=== PATIENT | female | born 1960 | race Caucasian/White ===

== ENCOUNTER 2018-03-15 13:55 | Observation (INO) | END 2018-03-16 19:04 | disposition home or self-care (01) ==

== ENCOUNTER 2018-07-25 07:42 | Day surgery (SDC) | payer BC ==
[2018-07-25] VITALS (17 sets, daily range): BP systolic 109–129; BP diastolic 49–64; PULSE 60–82; RESP 16–23; Ht 154.9 cm; Wt 87.7 kg
[~2018-07-25] VITALS: Ht 154.9 cm; Wt 87.7 kg
[~2018-07-25 07:42] MED LIST: ADV10050 INHALATION; ALEN70TA5 PO; AMLO-147 PO; ASPI-817 PO; ATOR20TA38 PO; CLOP75TA28 PO; DIAZEPAM 5 MG TAB PO ONE; DIGO125T93 PO; DIPHENHYDRAMINE 50 MG CAP PO ONE; ERGO500014 PO; FAMO20TA18 PO; FAMOTIDINE 20 MG TAB PO ONE; FENO160T10 PO; LIRA0.6P SQ; LOSA25TA12 PO; MAGN400T28 PO; METO-319 PO; MONT10TA24 PO; PIOG30TA71 PO; POTA8CAP PO; SOD CHLORIDE 0.45% 1,000 ML IV SCH; SPIR25TA PO; SULF1TAB31 PO
[2018-07-25] MEDS ORDERED: LIRA0.6P SQ (09:33)
[2018-07-25] MEDS ORDERED: BUME2TAB PO (09:33)
[2018-07-25] MEDS ORDERED: TRAM50TA PO (09:33)
[2018-07-25] MEDS ORDERED: MIDAZOLAM 1 MG/ML 2 ML INJ ONE (11:45)
[2018-07-25] MEDS ORDERED: FENTAnyl 50 MCG/ML VIAL ONE (11:45)
--- NOTE | 2018-07-25 12:27 | SIPON ---
Date/Time of Note Date/Time of Note DATE: 07/25/18 TIME: 12:25 Operative Report Preoperative Diagnosis 1.Mitral stenosis 2.cad Postoperative Diagnosis 1.Mitral stenosis Operation/Procedure Performed 1.[facility] 2,.[facility] Surgeon see signature line assistant brand manager 1.[facility] Anesthesia: moderate sedation Estimated blood loss: minimal Transfusion Required none Specimen none Grafts/Implants none Complications none KARTIK ANSARI Jul 25, 2018 12:27
[2018-07-25] MEDS ORDERED: SOD CHLORIDE 0.9% 1,000 ML IV SCH (12:41)
[2018-07-25] MEDS ORDERED: LIDOCAINE 1% (MDV) 20 ML INJ ONE (12:42)
[2018-07-25] MEDS ORDERED: IODIXANOL LOCM 100 ML BTL ONE (12:42)
[2018-07-25] MEDS ORDERED: morphine 2 MG INJ IV PRN (13:00)
[2018-07-25] MEDS ORDERED: ACETAMINOPHEN 325 MG TAB PO PRN (13:00)
--- NOTE | 2018-07-25 17:03 | RADRPT ---
Vent Rate: 69 bpm RR Interval: 0 msec OH Interval: 250 msec QRS Duration: 100 msec QT Interval: 370 msec QTC Interval: 396 msec P-R-T Ovid: 61 - 90 - -36 degrees Sinus rhythm with 1st degree AV block Rightward axis ST & T wave abnormality, consider inferior ischemia Abnormal ECG Electronically Signed By: Camden Lemons
--- NOTE | 2018-07-25 19:37 | CARRPT ---
DATE OF PROCEDURE: 07/25/2018 TYPE OF PROCEDURES: 1. Left heart catheterization. 2. Right heart catheterization. 3. Femoral angiography. 4. Perclose closure device to right femoral artery. ATTENDING PHYSICIAN: Kartik Rodriguez MD REFERRING PHYSICIAN: Rowdy Heard MD TYPE OF ANESTHESIA: Conscious and local. BRIEF HISTORY: Ms. Huerta is a 58-year-old female with history of coronary artery disease, stat us post prior PTCA and stent placement, status post possible mitral valve repair in [facility] in 1982, hypertension, dyslipidemia, who presented with complaints of shortness of breath. The patient underw ent a 2D echo revealing possible increase in ____. She has now been sent to the cardiac labor economist and to assess for the possibility of significant mitral stenosis and assess the patient's coronary vascu lature. DESCRIPTION OF PROCEDURE: After informed consent was obtained, the patient was brought to the [facility] cardiac catheterization lab where her right groin was prepped and draped in th e usual sterile fashion. A 2% lidocaine was infiltrated in the right groin in order to achieve adequ ate local anesthesia. Using the modified Seldinger technique, the radial femoral artery was cannulat ed and a 6-[place] arterial sheath was placed. Subsequently at this time using the modified Seldinger technique, the patient's right femoral vein was cannulated and a 7-[place] venous sheath was placed. At this time using 6-[place] catheter was passed into the RA, RV, PA and finally pulmonary capillary wedge positions with pressures obtained in each subsequent chamber. Cardiac output was det ermined by thermodilution method the [place] catheter was removed. Subsequently, we moved directly into left heart catheterization. A JL4 was used to cannulate the left main coronary ostium. With c ontrast injection, multiple views of left coronary arterial system were obtained. JL4 was removed ov er a guidewire and a JR4 was used to cannulate the right coronary arterial ostium. With contrast inj ection, multiple views of the right coronary arterial system were obtained. JR4 was removed a guidew gustavo and a 6-[place] pigtail was passed down the ascending aorta and placed in LV. LVEDP was measured. A 20 mL of contrast were injected opacifying the left ventricle and pullback across the valve to as sess for significant gradient, which there was not and removed. Subsequently at this time, we perfor med the femoral angiography to assess placement of the patient's right femoral arterial sheath, place d in right common femoral artery. Subsequently, a 6-[place] Perclose device was used to seal the vess el. The patient's venous sheath was removed. Manual pressure was obtained and subsequently, hemosta sis was achieved. This completed the procedure. There were no noted complications. FINDINGS: Left main is 4.5 mm, no significant focal stenoses. Circumflex proximally is a 2.5 vessel s, free of significant focal stenoses. In mid portion, it has a 20% to 30% stenosis. There is a pro ximal branching obtuse marginal 2 mm with no significant focal stenoses. The LAD proximally is a 3.5 mm vessel and in its proximal portion has a stent which is widely patent with very minimal in-stent restenosis approximately 10%. The remainder of LAD is free of significant focal stenoses. There is a proximal branching diagonal 2 mm and a mid branching diagonal of 2.5 mm with no significant focal s tenoses. The patient's right coronary artery proximally is 3 mm vessel and has mild luminal irregula rities of 10% to 20% in the mid portion. It is a dominant vessel, gives off a 2 mm PDA and a 2.5 mm posterolateral branch each with no significant focal stenoses. Left ventriculogram: Left ventricular ejection fraction is approximately 35%, moderate global hypoki nesis. LVEDP of 5. Right heart catheterization: Right atrial pressure of 9, right ventricular pressure of 71/2, pulmona ry arterial pressure of 77/28, a cardiac output of 4.9, cardiac index of 2.6. The patient's mitral v alve and aortic valve areas were being calculated at the time of this dictation and therefore will be reported separately. Femoral angiography revealed the sheath to be well placed in the right common femoral artery. TOTAL FLUOROSCOPY TIME: 6.2 minutes. TOTAL CONTRAST: 100 mL. Aortic valve area of 3.5 with a mean gradient of 14.3 with mitral valve area being calculated at time of dictation. IMPRESSION: 1. Mild coronary artery with widely patent LAD stent. 2. Elevated right heart filling pressures, severely. 3. Low normal left heart filling pressures. 4. No significant aortic stenosis. 5. ____ reported separately. RECOMMENDATIONS: In light of procedure findings at this time, we would: 1. Maximize medical therapy. 2. Aggressive risk factor reduction. 3. The patient will be readmitted to same day surgery center for post-cath observation and continued management of symptoms with probable discharge later this afternoon. Dictated By: KARTIK FREEMAN/FREDDY Conf#: [id number] DID#: [id number]
== END 2018-07-25 17:05 | disposition home or self-care (01) ==
LOC: SDS 07:42 → CCL 07:42
PROVIDERS: ATTEND Internal Medicine
DX: I25.10 Atherosclerotic heart disease of native coronary artery without angina pectoris (principal); I10 Essential (primary) hypertension; E78.5 Hyperlipidemia, unspecified; E11.9 Type 2 diabetes mellitus without complications; J45.909 Unspecified asthma, uncomplicated; Z95.810 Presence of automatic (implantable) cardiac defibrillator
CPT/HCPCS: 71045; 80048; 80061; 82962; 85025; 85610; 85730; 93005; 93460; C1769; C1887; C1894; J1644; J2250; J3010; Q9967; Z7610